=== PATIENT | female | born 1965 | race Caucasian/White ===

== ENCOUNTER 2021-06-04 12:38 | Emergency (ER) | payer MEDICARE, MEDICAID ==
[~2021-06-04] VITALS: Ht 170.2 cm; Wt 95.3 kg
[2021-06-04] MEDS ORDERED: ZOLOFT20 MG/1 ML PO (13:06)
[2021-06-04] MEDS ORDERED: METFORMIN HCL500 M3 PO (13:06)
[2021-06-04] MEDS ORDERED: KLOR-CON 10 ER10 MEQ PO (13:07)
[2021-06-04] MEDS ORDERED: FUROSEMIDE 20 M20 MG PO (13:07)
[2021-06-04] MEDS ORDERED: ALEVE220 M1 PO (13:07)
[2021-06-04 14:55] LABS: ABSOLUTE BASOPHILS 0.1 thou/uL (0.0-0.2); ABSOLUTE EOSINOPHILS 0.2 thou/uL (0.0-0.7); ABSOLUTE LYMPHOCYTES 2.6 thou/uL (0.8-5.3); ABSOLUTE MONOCYTES 0.6 thou/uL (0.0-1.2); ABSOLUTE NEUTROPHILS 5.3 thou/uL (1.6-8.1); EOSINOPHILS 2.6 %; HEMATOCRIT 40.2 % (37.0-47.0); HEMOGLOBIN 13.8 gm/dL (12.0-15.0); LYMPHOCYTES 29.6 %; MCH 30.9 pg (26.0-34.0); MCHC 34.4 g/dL (28.0-37.0); MPV 10.2 fl. (7.2-11.1); NUCLEATED RBCS 0 /100WBC; PLATELET COUNT* 180 thou/uL (150-400); POLYS 59.8 %; RBC 4.47 mil/uL (4.20-5.00); RDW-CV 13.7 % (10.5-14.5); WBC 8.8 thou/uL (4.0-11.0)
[2021-06-04 15:05] LABS: POTASSIUM 4.1 mmol/L (3.5-5.1)
[2021-06-04] MEDS ORDERED: NORCO5 PO (15:39)
[2021-06-04] MEDS ORDERED: IBUPROFEN 800800 MG PO (15:41)
[2021-06-04 15:50] VITALS: BP 160/103
--- NOTE | 2021-06-07 15:21 | EKG ---
[place] [address] ELECTROCARDIOGRAM REPORT Name: OSHEA,MIAH Maurisio Room: [facility]#: [id number] Admission: 06/04/21 Attend Phys: Discharge: 06/04/21 Date of : 65 Date of Service: 06/04/21 1315 Report #: [id number] THIS REPORT FOR: //name// [facility] ED Test Date: 2021-06-04 Test Time: 13:15:09 Pat Name: MIAH OSHEA Department: Room: Gender: F [employer]: : 1965 Requested By: Ru Mckeon Order Number: [id number] Glenny MD: Jamshid Chandler Measurements Intervals [place] Rate: 85 P: 31 NV: 138 QRS: -13 QRSD: 141 T: -12 QT: 424 QTc: 505 Interpretive Statements Sinus rhythm Right bundle branch block nonspecific st-t changes No previous ECG available for comparison Electronically Signed On 06-07-2021 15:21:24 CDT by Jamshid Chandler [email or web address] <ELECTRONICALLY SIGNED> By: Jamshid Chandler MD, [facility] 06/07/21 1521 1315 1315 Jamshid Chandler MD, FAC /EPI
== END 2021-06-04 17:19 | disposition home or self-care (01) ==
LOC: M.ERS 12:38
PROVIDERS: Emergency Medicine
DX: S20.211A Contusion of right front wall of thorax, initial encounter (principal); E11.9 Type 2 diabetes mellitus without complications; Z90.710 Acquired absence of both cervix and uterus; Z88.1 Allergy status to other antibiotic agents; Z88.5 Allergy status to narcotic agent; Z88.2 Allergy status to sulfonamides; W18.39XA Other fall on same level, initial encounter; Y93.89 Activity, other specified; Y92.89 Other specified places as the place of occurrence of the external cause; Y99.8 Other external cause status